=== PATIENT | female | born 1985 | race Caucasian/White ===

== ENCOUNTER 2018-09-11 17:31 | Emergency (ER) | payer BC ==
[2018-09-11 17:53] VITALS: BP 130/81
--- NOTE | 2018-09-11 18:24 | UC ---
Complaint Female HPI - HPI Summary HPI Summary: 33 yo female with dysuria/urgency and frequency x 1 day no f/c no n/v/d - History Of Current Complaint Chief Complaint: UCGU Stated Complaint: URINARY Time Seen by Provider: 09/11/18 18:03 Hx Obtained From: Patient Hx Last Menstrual Period: 08/07/18 has had tubal Onset/Duration: Gradual Onset Timing: Intermittent, Lasting Seconds Severity Initially: Severe Severity Currently: None Pain Intensity: 0 Pain Scale Used: 0-10 Numeric Aggravating Factor(s): Urination Associated Signs And Symptoms: Positive: Vaginal Discharge - 4 days ago. Negative: Fever, Back Pain, Vaginal Bleeding/Discharge, Nausea, Vomiting(# Of Episodes =), Genital Swelling, Genital Blisters, Retained Foregin Body (Specify) - Allergies/Home Medications Allergies/Adverse Reactions: Allergies Allergy/AdvReac Type Severity Reaction Status Date / Time No Known Allergies Allergy Verified 05/19/15 10:31 PMH/Surg Hx/FS Hx/Imm Hx Previously Healthy: Yes - Surgical History Surgical History: Yes Surgery Procedure, Year, and Place: 2 C-SECTIONS - Family History Known Family History: Positive: Hypertension - Social History Alcohol Use: Occasionally Substance Use Type: None Smoking Status (MU): Never Smoked Tobacco Review of Systems All Other Systems Reviewed And Are Negative: Yes Constitutional: Positive: Negative Skin: Positive: Negative Eyes: Positive: Negative ENT: Positive: Negative Respiratory: Positive: Negative Cardiovascular: Positive: Negative Gastrointestinal: Positive: Negative Genitourinary: Positive: Dysuria, Hematuria - ?, Frequency, Urgency Motor: Positive: Negative Neurovascular: Positive: Negative Musculoskeletal: Positive: Negative Neurological: Positive: Negative Psychological: Positive: Negative Physical Exam Triage Information Reviewed: Yes Appearance: Well-Appearing, No Pain Distress, Well-Nourished Vital Signs: Initial Vital Signs Temp 97.5 F 09/11/18 17:47 Pulse 103 09/11/18 17:47 Resp 16 09/11/18 17:47 BP 130/81 09/11/18 17:47 Pulse Ox 100 09/11/18 17:47 Vital Signs Reviewed: Yes Eyes: Positive: Conjunctiva Clear ENT: Positive: Hearing grossly normal, Uvula midline. Negative: Nasal congestion, Nasal drainage, Tonsillar swelling, Tonsillar exudate, Trismus, Muffled voice, Hoarse voice Neck: Positive: Supple, Nontender, No Lymphadenopathy Respiratory: Positive: Lungs clear, Normal breath sounds, No respiratory distress, No accessory muscle use Cardiovascular: Positive: RRR, No Murmur Abdomen Description: Positive: Nontender, No Organomegaly, Soft. Negative: CVA Tenderness (R), CVA Tenderness (L) Bowel Sounds: Positive: Present Musculoskeletal: Positive: ROM Intact, No Edema Neurological: Positive: Alert Psychological Exam: Normal Skin Exam: Normal Complaint Female Dx - Course Course Of Treatment: ua ++ leuks, +++rbcs, +++ protein uHCG (-) - Differential Dx/Diagnosis Provider Diagnosis: Dysuria Discharge - Sign-Out/Discharge Documenting (check all that apply): Patient Departure All imaging exams completed and their final reports reviewed: No Studies - Discharge Plan Condition: Stable Disposition: HOME Prescriptions: Cephalexin CAP* [Keflex CAP*] 500 mg PO BID #10 cap Phenazopyridine TAB* [Pyridium TAB*] 100 mg PO TID #6 tab Patient Education Materials: Dysuria (ED) Referrals: No Primary Care Phys,NOPCP [Primary Care Provider] - Additional Instructions: tests pending recheck in 48 hours if not better you need to find a primary care provider - Billing Disposition and Condition Condition: STABLE Disposition: Home
[2018-09-11] MEDS ORDERED: Cephalexin CAP* 500 MG PO ONE (18:37)
[2018-09-11] MEDS ORDERED: Phenazopyridine TAB* 100 MG PO ONE (18:37)
[2018-09-13 13:11] LABS: Neisseria gonorrhoeae (GC) RNA Negative (Negative)
== END 2018-09-11 18:56 | disposition home or self-care (01) ==
LOC: UCCORT 17:31
DX: R30.0 Dysuria (principal); R35.0 Frequency of micturition; R39.15 Urgency of urination; Z32.02 Encounter for pregnancy test, result negative
CPT/HCPCS: 81003; 84702; 87077; 87086; 87186; 87491; 87591; 99202; A9270-GY; G0463

== ENCOUNTER 2019-02-19 10:09 | Emergency (ER) | payer BC ==
[2019-02-19 10:26] VITALS: BP 122/78
--- NOTE | 2019-02-19 10:42 | UC ---
Complaint Female HPI - HPI Summary HPI Summary: 33-year-old female presents with 2-3 day history of dysuria, frequency, and urgency. Reports history of frequent UTIs. Patient states she has also noted some thin white vaginal discharge but states that this is not unusual for her. She is requesting screening for gonorrhea and chlamydia. States that she had unprotected vaginal intercourse with a new male partner approximately one month ago. Last menstrual period was 02/03/2019. Denies fever, chills, abdominal pain, nausea, vomiting, back or flank pain, hematuria, general malaise lesions, or dyspareunia. - History Of Current Complaint Chief Complaint: UCGU Stated Complaint: URINARY Time Seen by Provider: 02/19/19 10:32 Hx Obtained From: Patient Hx Last Menstrual Period: 02/03/19 Pain Intensity: 3 - Allergies/Home Medications Allergies/Adverse Reactions: Allergies Allergy/AdvReac Type Severity Reaction Status Date / Time No Known Allergies Allergy Verified 02/19/19 10:21 PMH/Surg Hx/FS Hx/Imm Hx Previously Healthy: Yes - Denies significant PMH - Surgical History Surgical History: Yes Surgery Procedure, Year, and Place: 2 C-SECTIONS - Family History Known Family History: Positive: Hypertension - Social History Occupation: Employed Full-time Lives: With Family Alcohol Use: Rare Substance Use Type: None Smoking Status (MU): Never Smoked Tobacco Review of Systems All Other Systems Reviewed And Are Negative: Yes Constitutional: Negative: Fever, Chills Respiratory: Positive: Negative Cardiovascular: Positive: Negative Gastrointestinal: Negative: Abdominal Pain, Vomiting, Nausea Genitourinary: Positive: Dysuria, Frequency, Urgency, Vaginal/Penile Discharge. Negative: Hematuria, Vaginal/Penile Burning, Vaginal/Penile Itching, Ulceration/Lesion, Abnormal Bleeding Musculoskeletal: Positive: Negative Neurological: Positive: Negative Is Patient Immunocompromised?: No Physical Exam - Summary Physical Exam Summary: GENERAL APPEARANCE: Well developed, well nourished, alert and cooperative, and appears to be in no acute distress. CARDIAC: Normal S1 and S2. No S3, S4 or murmurs. Rhythm is regular. There is no peripheral edema, cyanosis or pallor. Extremities are warm and well perfused. Capillary refill is less than 2 seconds. Peripheral pulses intact. LUNGS: Clear to auscultation without rales, rhonchi, wheezing or diminished breath sounds. ABDOMEN: Positive bowel sounds. Soft, nondistended, nontender. No guarding or rebound. No masses or hepatosplenomegally. No CVA tenderness. MUSKULOSKELETAL: ROM intact to all extremities. No joint erythema or tenderness. Normal muscular development. Normal gait. SKIN: Skin normal color, texture and turgor with no lesions or eruptions. Triage Information Reviewed: Yes Vital Signs: Initial Vital Signs Temp 98.4 F 02/19/19 10:21 Pulse 90 02/19/19 10:21 Resp 16 02/19/19 10:21 BP 122/78 02/19/19 10:21 Pulse Ox 99 02/19/19 10:21 Vital Signs Reviewed: Yes Complaint Female Dx - Course Course Of Treatment: 33-year-old female presents with 2-3 day history of dysuria, frequency, and urgency. Reports history of frequent UTIs. Patient states she has also noted some thin white vaginal discharge but states that this is not unusual for her. She is requesting screening for gonorrhea and chlamydia. States that she had unprotected vaginal intercourse with a new male partner approximately one month ago. Last menstrual period was 02/03/2019. Denies fever, chills, abdominal pain, nausea, vomiting, back or flank pain, hematuria, general malaise lesions, or dyspareunia. Afebrile. Vital signs stable. Patient's exam is overall unremarkable. [id number] urinalysis showed 2+ leukocyte esterase, 2+ blood, 2+ protein, and positive nitrite. Urine culture is pending. Urine was negative. Patient was requesting screening for gonorrhea and chlamydia since she had unprotected intercourse with a new male partner approximately one month ago. She declined testing for HIV and syphilis at this time. He started on her symptoms and urinalysis will treat her empirically for a urinary tract infection with Bactrim DS 1 tablet twice daily 5 days and provide her with Pyridium 100 mg 3 times a day 2 days for the discomfort. She is to return here or follow up with primary care in 3-5 days if symptoms are not improving. Anticipatory guidance and warning symptoms were reviewed with the patient. Verbalizes understanding and agrees with plan of care. - Differential Dx/Diagnosis Differential Diagnosis/HQI/PQRI: Pelvic Inflammatory Disease, , Sexually Transmitted Disease, Urinary Tract Infection Provider Diagnosis: UTI (urinary tract infection) Discharge ED - Sign-Out/Discharge Documenting (check all that apply): Patient Departure All imaging exams completed and their final reports reviewed: No Studies - Discharge Plan Condition: Stable Disposition: HOME Prescriptions: Phenazopyridine TAB* [Pyridium 100 mg TAB*] 100 mg PO TID #6 tab Sulfamethox/Trimethoprim DS* [Bactrim DS 800/160 TAB*] 1 tab PO BID #10 tab Patient Education Materials: Urinary Tract Infection in Women (ED) Referrals: No Primary Care Phys,NOPCP [Primary Care Provider] - Additional Instructions: Your urine test in the clinic today is suggestive of a urinary tract infection. We will start you on an antibiotic to treat for the infection. We will also send a urine culture today to see what bacteria grow out and make sure the antibiotic you were prescribed is appropriate to treat the infection. It will take 48-72 hours to get these results. We will contact you if there is any change in your treatment plan. Start Bactrim DS 1 tab twice a day for . Take Pyridium 1 tablet every 8 hours for next 2 days to help with the discomfort. This medication will turn your urine an orange color. Drink plenty of fluids. To help prevent urinary tract infections: 1) Be sure to wipe from front to back. 2) Urinate immediately after any sexual intercourse. 3) Avoid taking bubble baths. We have also performed screening for gonorrhea and chlamydia at your request today. You have declined screening for HIV and syphilis at this time. We will contact you if these show any active infection and will provide you with an appropriate treatment. Return here or follow up with your primary care provider in 3-5 days if symptoms persist. Seek immediate medical attention in the emergency room if you develop fever greater than 100.5 F, have severe abdominal pain, persistent vomiting, or any worsening of symptoms. - Billing Disposition and Condition Condition: STABLE Disposition: Home
[2019-02-20 13:09] LABS: Chlamydia trachomatis NAA Negative (Negative); Neisseria gonorrhoeae (GC) NAA Negative (Negative)
--- NOTE | 2019-02-22 07:17 | UC ---
- Progress Note Progress Note: urine + e coli sensitive to bactrim no change ljj Course/Dx - Diagnoses Provider Diagnoses: UTI (urinary tract infection) Discharge ED - Sign-Out/Discharge Documenting (check all that apply): Post-Discharge Follow Up All imaging exams completed and their final reports reviewed: No Studies - Discharge Plan Condition: Stable Disposition: HOME Prescriptions: Phenazopyridine TAB* [Pyridium 100 mg TAB*] 100 mg PO TID #6 tab Sulfamethox/Trimethoprim DS* [Bactrim DS 800/160 TAB*] 1 tab PO BID #10 tab Patient Education Materials: Urinary Tract Infection in Women (ED) Referrals: No Primary Care Phys,NOPCP [Primary Care Provider] - Additional Instructions: Your urine test in the clinic today is suggestive of a urinary tract infection. We will start you on an antibiotic to treat for the infection. We will also send a urine culture today to see what bacteria grow out and make sure the antibiotic you were prescribed is appropriate to treat the infection. It will take 48-72 hours to get these results. We will contact you if there is any change in your treatment plan. Start Bactrim DS 1 tab twice a day for . Take Pyridium 1 tablet every 8 hours for next 2 days to help with the discomfort. This medication will turn your urine an orange color. Drink plenty of fluids. To help prevent urinary tract infections: 1) Be sure to wipe from front to back. 2) Urinate immediately after any sexual intercourse. 3) Avoid taking bubble baths. We have also performed screening for gonorrhea and chlamydia at your request today. You have declined screening for HIV and syphilis at this time. We will contact you if these show any active infection and will provide you with an appropriate treatment. Return here or follow up with your primary care provider in 3-5 days if symptoms persist. Seek immediate medical attention in the emergency room if you develop fever greater than 100.5 F, have severe abdominal pain, persistent vomiting, or any worsening of symptoms. - Billing Disposition and Condition Condition: STABLE Disposition: Home
== END 2019-02-19 10:57 | disposition home or self-care (01) ==
LOC: UCCORT 10:09
DX: N39.0 Urinary tract infection, site not specified (principal); N89.8 Other specified noninflammatory disorders of vagina
CPT/HCPCS: 81003; 84702; 87077; 87086; 87186; 87491; 87591; 99212; G0463